=== PATIENT | male | born 1965 | race Two or more races ===

== ENCOUNTER 2024-12-03 12:42 | Outpatient (CLI) | payer OTHER | END 2024-12-03 12:54 | disposition home or self-care (01) | LOC: TOM 12:42 | PROVIDERS: ATTEND Urology | DX: N40.0 Benign prostatic hyperplasia without lower urinary tract symptoms (principal); N52.9 Male erectile dysfunction, unspecified; N43.3 Hydrocele, unspecified; N20.0 Calculus of kidney ==